=== PATIENT | male | born 1980 | race Caucasian/White ===

== ENCOUNTER 2022-05-28 13:21 | Outpatient (CLI) | payer BC, SELFPAY ==
[2022-05-29 08:55] LABS: Chloride* 100 mmol/L (96-114); Potassium* 4.9 mmol/L (3.6-5.1); Sodium* 141 mmol/L (135-149)
[2022-05-29 08:57] LABS: Cholesterol* 301 mg/dL (90-199); Creatinine* 0.9 mg/dL (0.5-1.5); Estimated Glomerular Filt Rate 109 ml/min
[2022-05-29 08:58] LABS: Blood Urea Nitrogen* 14 mg/dL (5-24); Calcium* 10.5 mg/dL (8.4-10.6); Carbon Dioxide* 30 mmol/L (20-32); Glucose* 87 mg/dL (60-115); Triglycerides* 111 mg/dL (40-149)
[2022-05-29 08:59] LABS: HDL Cholesterol* 77 mg/dL (>=40); LDL Cholesterol Calculated 202 mg/dL (<100)
== END 2022-05-28 13:22 | disposition home or self-care (01) ==
PROVIDERS: PCP Family Medicine; Visit Provider Family Medicine
DX: Z00.00 Encounter for general adult medical examination without abnormal findings (principal); Z13.6 Encounter for screening for cardiovascular disorders
CPT/HCPCS: 80048; 80061

== ENCOUNTER 2023-05-20 10:26 | Outpatient (CLI) | payer BC, SELFPAY | END 2023-05-20 10:27 | disposition home or self-care (01) | PROVIDERS: PCP Family Medicine; Visit Provider Nurse Practitioner Family | DX: E83.52 Hypercalcemia (principal); I10 Essential (primary) hypertension; R79.89 Other specified abnormal findings of blood chemistry; E78.5 Hyperlipidemia, unspecified | CPT/HCPCS: 80053; 80061; 82310; 82607; 83970; 84443; 85025; 86039 ==

== ENCOUNTER 2023-06-03 07:04 | Outpatient (CLI) | payer BC, SELFPAY ==
--- NOTE | 2023-06-03 07:15 | CRLHL7_ITS ---
For Patients: As a result of the Century Cures Act, medical imaging exams and procedure reports are released immediately into your electronic medical record. You may view this report before your referring provider. If you have questions, please contact your health care provider. INDICATION: Abnormal blood test. High lipid. TECHNIQUE: MRI brain: Multiplanar multisequence MR imaging acquired prior to and following intravenous contrast. MRA head: Kqfk-dj-[id number] imaging acquired. MRA neck: Tybr-va-jcitym and postcontrast imaging acquired. COMPARISON: None. FINDINGS: MRI brain: The ventricles and sulci are within normal limits for patient age. No mass effect or midline shift. No parenchymal signal abnormalities. No intracranial hemorrhage or pathologic extra-axial fluid collection. No diffusion restriction to suggest acute infarction. No pathologic intracranial enhancement. The major arterial flow voids of the skullbase are preserved. The globes are symmetric. Efbo-[id number]-nldqstlc paranasal sinus mucosal thickening. The mastoid air cells are clear. MRA head: The internal carotid, middle cerebral, and anterior cerebral arteries are widely patent. The vertebral, basilar, and posterior cerebral arteries are widely patent. No intracranial aneurysm or high-flow vascular malformation. MRA neck: The innominate and subclavian arteries are widely patent. The common carotid arteries are widely patent. The internal carotid arteries are widely patent. The right vertebral artery is dominant. The vertebral arteries are widely patent. IMPRESSION: 1. Unremarkable MRI of the brain. 2. Unremarkable MRA of the head and neck. Dictated by Gerardo Vogt MD @ 06/03/2023 9:13:08 AM (Electronically Signed)
== END 2023-06-03 07:05 | disposition home or self-care (01) ==
LOC: MRI 07:06
PROVIDERS: PCP Family Medicine; Visit Provider Nurse Practitioner Family
DX: R79.89 Other specified abnormal findings of blood chemistry (principal); R29.898 Other symptoms and signs involving the musculoskeletal system; E83.52 Hypercalcemia; R20.0 Anesthesia of skin
CPT/HCPCS: 70544; 70549; 70553; A9575

== ENCOUNTER 2025-01-12 14:22 | Outpatient (CLI) | payer BC, SELFPAY | END 2025-01-12 14:23 | disposition home or self-care (01) | PROVIDERS: PCP Family Medicine; Visit Provider Family Medicine | DX: E78.2 Mixed hyperlipidemia (principal) | CPT/HCPCS: 80048; 80061 ==